=== PATIENT | female | born 1960 | race Hispanic/Latino ===

== ENCOUNTER 2016-05-06 10:28 | Outpatient (CLI) | payer OTHER | END 2016-05-06 10:29 | disposition home or self-care (01) | LOC: NAVSJIPCSP 10:28 | PROVIDERS: ATTEND Internal Medicine | DX: Z51.81 Encounter for therapeutic drug level monitoring (principal); Z79.899 Other long term (current) drug therapy | CPT/HCPCS: 36415; 80061; 84443 ==

== ENCOUNTER 2016-09-01 08:50 | Outpatient (CLI) | payer OTHER ==
[2016-09-01 13:47] LABS: Anion Gap 14 mmol/L (10-20); BUN (Urea Nitrogen) 12 mg/dL (9.8-20.1); Calc. Creatinine Clearance 0 mL/min (70-130); Calcium 8.3 mg/dL (7.8-10.44); Carbon Dioxide 24 mmol/L (22-29); Cardiac Risk 2.8 (Less than 4.5); Chloride 104 mmol/L (98-107); Cholesterol 148 mg/dl (< 200 Desired); Estimated GFR-MDRD 73; Glucose 96 mg/dL (70-105); HDL Cholesterol 52 mg/dL (>60 Neg Risk); LDL Cholesterol, Calculated 73 mg/dL; Potassium 4.3 mmol/L (3.5-5.1); Sodium 138 mmol/L (136-145); Triglycerides 116 mg/dL (Less than 150)
[2016-09-01 14:12] LABS: Thyroid Stimulating Hormone 7.3899 uIU/mL (0.35-4.94); Vitamin D, 25 Hydroxy 36.3 ng/ml (> 30.0)
== END 2016-09-01 08:51 | disposition home or self-care (01) ==
LOC: NAVSJIPCSP 08:50
PROVIDERS: ATTEND Internal Medicine
DX: E55.9 Vitamin D deficiency, unspecified (principal); Z79.899 Other long term (current) drug therapy
CPT/HCPCS: 36415; 80048; 80061; 82306; 84443

== ENCOUNTER 2016-11-18 09:49 | Outpatient (CLI) | payer OTHER ==
[2016-11-18 12:33] LABS: #Basophils 0.1 thou/uL (0.0-0.2); #Eosinphils 0.2 thou/uL (0.0-0.7); #Lymphocytes 2.4 thou/uL (1.20-3.40); #Monocytes 0.4 thou/uL (0.11-0.59); #Neutrophils 2.5 thou/uL (1.40-6.50); %Basophils 1.2 % (0.0-1.0); %Eosinophils 3.2 % (0.0-10.0); %Lymphocytes 43.3 % (21.0-51.0); %Monocytes 6.9 % (0.0-10.0); %Neutrophils 45.5 % (42.0-75.0); Hemoglobin 13.8 g/dL (12.0-16.0); Mean Corpuscular HGB CONC 32.8 g/dL (32.0-36.0); Mean Corpuscular Hemoglobin 30.6 pg (27.0-31.0); Mean Corpuscular Volume 93.4 fl (81.0-99.0); Mean Platelet Volume 8.6 fL (7.4-10.4); Platelet Count 234 thou/uL (130-400); RBC Distribution Width 12.2 % (11.5-14.5); Red Blood Cell (RBC) Count 4.51 mill/uL (4.20-5.40); White Blood Cell (WBC) Count 5.6 thou/uL (4.8-10.8)
[2016-11-18 12:47] LABS: ALT (SGPT) 29 U/L (8-55); AST (SGOT) 23 U/L (5-34); Alkaline Phosphatase 81 U/L (40-150); Anion Gap 13 mmol/L (10-20); BUN (Urea Nitrogen) 11 mg/dL (9.8-20.1); Bilirubin, Total 0.5 mg/dL (0.2-1.2); Calc. Creatinine Clearance 0 mL/min (70-130); Calcium 8.9 mg/dL (7.8-10.44); Carbon Dioxide 26 mmol/L (22-29); Cardiac Risk 2.9 (Less than 4.5); Chloride 104 mmol/L (98-107); Cholesterol 154 mg/dl (< 200 Desired); Estimated GFR-MDRD 75; Globulin 3.2 g/dL (2.4-3.5); Glucose 91 mg/dL (70-105); HDL Cholesterol 53 mg/dL (>60 Neg Risk); LDL Cholesterol, Calculated 74 mg/dL; Potassium 4.4 mmol/L (3.5-5.1); Protein, Total 7.2 g/dL (6.0-8.3); Sodium 139 mmol/L (136-145); Triglycerides 133 mg/dL (Less than 150)
[2016-11-18 12:56] LABS: Bilirubin Negative (Negative); Blood, Urine Trace (Negative); Clarity Clear (Clear); Glucose, Urine (Dipstick) Negative (Negative); Leukocyte Small (Negative); Nitrite Negative (Negative); Protein, Urine (Dipstick) Negative (Neg-Trace); Urobilinogen 0.2 mg/dL (0.2-1.0)
[2016-11-18 13:02] LABS: Hemoglobin A1c 5.9 % (4.0-6.0)
[2016-11-18 13:10] LABS: Bacteria/HPF Rare-Few HPF (None Seen); RBC/HPF 0-3 HPF (0-3); Renal Epithelial 0-3 HPF (0-3); Squamous Epithelial 0-3 HPF (0-3); WBC/HPF 0-3 HPF (0-3)
== END 2016-11-18 09:50 | disposition home or self-care (01) ==
LOC: NAVSJIPCSP 09:49
PROVIDERS: ATTEND Internal Medicine
DX: Z51.81 Encounter for therapeutic drug level monitoring (principal); Z79.899 Other long term (current) drug therapy
CPT/HCPCS: 36415; 80053; 80061; 81003; 81015; 83036; 84443; 85025